=== PATIENT | female | born 1980 | race Caucasian/White ===

== ENCOUNTER 2021-01-04 16:41 | Outpatient (REF) | payer OTHER, SELFPAY ==
--- NOTE | ~2021-01-04 | CT_ITS ---
EXAMINATION: CT PELVIS WITHOUT CONTRAST CLINICAL INFORMATION: Evaluate right S1 fusion. COMPARISON: CT abdomen and pelvis 08/31/2013 TECHNIQUE: Helical scanning was performed with submillimeter collimation through the pelvis. Sagittal and coronal multiplanar 2-D reconstructions were obtained. This CT examination was performed using dose optimization techniques as appropriate, variously including the following: *Automated exposure control *Adjustment of mA and/or kV according to patient size (this includes techniques or standardized protocols for targeted exams where dose is matched to indication/reason for exam; i.e. extremities or head) *Use of iterative reconstruction technique DLP: 256 mGy-cm FINDINGS: PELVIS: The uterus is anteverted within an IUD well located within the endometrial canal. There is no adnexal mass. Suspect minimal free fluid in the right pelvis. The bladder is nondistended and appears unremarkable. The bowel gas pattern is nonspecific. OSSEOUS STRUCTURES: There are 3 metallic struts through the right SI joint for fusion. The first anterior metallic struts extend through the SI joint and the sacrum. The third posterior metallic strut tip lies within the SI joint. There is mild sclerosis on either side of the right SI joint. The left SI joint has minimal sclerosis along the iliac side. The sacral side appears unremarkable. The rest of the visualized pelvic bones and the sacrum is unremarkable. CT/CT pelvis wo con IMPRESSION: Three metallic struts through the right SI joint for fusion, as described above. There is moderate sclerosis along the right SI joint from sacroiliitis. There is minimal sclerosis left iliac bone at the SI joint, likely early sacroiliitis. The uterus is anteverted with IUD well located within the endometrial canal.
[2021-01-04 18:10] LABS: MANUAL DIFF FLAG NO
[2021-01-04 18:42] LABS: C Reactive Protein 0.12 mg/dL (< or = 0.50)
[2021-01-04 18:48] LABS: Basophils Absolute Auto 0.1 X10*3/uL (0.0-0.2); Basophils Percent Auto 0.7 % (0-2); Eosinophils Absolute Auto 0.5 X10*3/uL (0.0-0.4); Eosinophils Percent Auto 4.2 % (0-4); Hematocrit 41.2 % (37-47); Hemoglobin 14.4 g/dl (12.0-16.0); Imm Gran Abs Auto 0.09 X10*3/uL (0.00-0.03); Imm Gran Pct Auto 0.7 % (0.0-0.4); Lymphocytes Absolute Auto 2.5 X10*3/uL (1.2-4.9); Lymphocytes Percent Auto 20.2 % (20-40); Mean Corpuscular Hemoglobin 31.4 pg (27.0-33.0); Mean Corpuscular Volume 89.8 fL (80-98); Mean Platelet Volume 10.5 fL (9.4-12.3); Monocytes Absolute Auto 0.8 X10*3/uL (0.1-1.2); Monocytes Percent Auto 6.4 % (2-11); Neutrophils Absolute Auto 8.3 X10*3/uL (2.0-8.3); Neutrophils Percent Auto 67.8 % (45-73); Platelet Count 310 X10*3/uL (160-400); Red Blood Count 4.59 X10*6/uL (4.20-5.50); Red Cell Distribution Width 12.5 % (11.0-16.0); White Blood Count 12.2 X10*3/uL (4.8-10.8)
[2021-01-04 19:04] LABS: Erythrocyte Sedimentation Rate 5 MM/HR (0-20)
[2021-01-05 13:56] LABS: Lyme Abs Screen <0.90 index
[2021-01-09 00:52] LABS: VITAMIN D (1,25 OH) D3 23 pg/mL; Vit D (1,25-Dihydroxy) Total 35 pg/mL (18-72); Vitamin D (1,25 OH) D2 12 pg/mL
== END 2021-01-04 16:42 | disposition home or self-care (01) ==
LOC: HO.CT 16:41
PROVIDERS: PCP Internal Medicine; Visit Provider Neurological Surgery
DX: M46.98 Unspecified inflammatory spondylopathy, sacral and sacrococcygeal region (principal); E55.9 Vitamin D deficiency, unspecified
CPT/HCPCS: 36415; 72192; 82652; 85025; 85652; 86140; 86617; 86618